=== PATIENT | female | born 1935 | race Caucasian/White ===

== ENCOUNTER 2022-05-05 16:01 | Inpatient (IN) ==
[2022-05-05] MEDS ORDERED: 0.9 % Sodium Chloride 1,000 ML IVC ONE (16:40)
[2022-05-05] MEDS ORDERED: Iopamidol - 370 500 ML MLS IVP ONE (16:42)
[2022-05-05] MEDS ORDERED: Piperacillin/Tazobactam 3.375 GM in 0.9 % Sodium Chloride Mini Bag 100 ML IVPB ONE (16:43)
[2022-05-05 17:05] LABS: INR 1.2; Prothrombin Time 13.5 Seconds (9.4-12.1)
[2022-05-05 17:08] LABS: Activated Partial Thrombo Time 30.1 Seconds (26.0-36.0)
[2022-05-05 17:16] LABS: Basophils % 0.3 %; Eosinophils # 0.1 K/mcL (0.0-0.6); Eosinophils % 0.7 %; Hemoglobin 11.4 g/dL (11.5-15.4); Immature Granulocytes % 0.5 % (0-4); Lymphocytes # 1.4 K/mcL (0.6-4.6); Lymphocytes % 15.6 %; Mean Corpuscular HGB Conc 32.6 g/dL (31.6-35.5); Mean Corpuscular Hemoglobin 29.8 pg (28.0-33.3); Mean Corpuscular Volume 91.4 fL (83.0-100.0); Mean Platelet Volume 9.1 fL (9.4-12.4); Monocytes # 0.7 K/mcL (0.0-1.3); Monocytes % 8.3 %; Neutrophils # 6.5 K/mcL (1.6-8.9); Platelet Count 387 K/mcL (140-400); Red Blood Count 3.83 M/mcL (3.82-4.97); Red Cell Distribution Width 12.5 % (11.5-14.5); Segmented Neutrophils % 74.6 %; White Blood Count 8.8 K/mcL (4.3-11.1)
[2022-05-05 17:16] LABS: Albumin/Globulin Ratio 0.8 (1.1-2.2); Bilirubin,Indirect 0.3 mg/dL (0.0-1.0); Bilirubin,Total 0.3 mg/dL (0.3-1.0); Globulin 3.7 g/dL (2.4-3.5); Potassium 4.9 mEq/L (3.5-5.1); Total Protein 6.7 g/dL (6.4-8.9); Troponin I 0.04 ng/mL (< 0.04)
[2022-05-05 19:09] LABS: Bilirubin,Urine Negative (Negative); Blood,Urine Moderate (Negative); Budding Yeast,Urine Few per hpf (None Seen); Clarity,Urine Clear (Clear); Color,Urine Light-Yellow (Yellow); Glucose,Urine (UA) Normal (Normal); Hyaline Casts,Urine Few per lpf (None Seen); Ketones,Urine Negative (Negative); Leukocyte Esterase,Urine Moderate (Negative); Mucus,Urine Few per lpf (None-Few); Nitrite,Urine Negative (Negative); Protein,Urine Negative (Neg-Trace); RBC,Urine 50-100 per hpf (0-3); Specific Gravity,Urine 1.026 (1.010-1.025); Squamous Epithelial Cell,Urine Few per hpf (None-Few); Urobilinogen,Urine Normal (Normal); WBC,Urine 30-50 per hpf (0-3)
[2022-05-05] MEDS ORDERED: Melatonin 3 MG TABLET PO PRN (20:54)
[2022-05-05] MEDS ORDERED: Acetaminophen 325 MG TABLET PO PRN (20:54)
[2022-05-05] MEDS ORDERED: Naloxone 0.4 MG/ML INJ IVP PRN (20:54)
[2022-05-05] MEDS ORDERED: Ondansetron 4 MG/2 ML VIAL IVP PRN (20:54)
[2022-05-05] MEDS ORDERED: Gadolinium Contrast Agent (WT Based) IV PRN (22:53)
[2022-05-05] MEDS: Apixaban 5 MG TABLET PO SCH (23:32)
[2022-05-05] MEDS: Piperacillin/Tazobactam 3.375 GM in 0.9 % Sodium Chloride Mini Bag 100 ML IVPB SCH (23:33)
[2022-05-06 02:05] LABS: Basophils % 0.3 %; Eosinophils # 0.1 K/mcL (0.0-0.6); Eosinophils % 0.9 %; Hematocrit 31.7 % (35.3-44.9); Hemoglobin 10.4 g/dL (11.5-15.4); Immature Granulocytes % 0.3 % (0-4); Lymphocytes # 1.5 K/mcL (0.6-4.6); Lymphocytes % 16.7 %; Mean Corpuscular HGB Conc 32.8 g/dL (31.6-35.5); Mean Corpuscular Hemoglobin 30.1 pg (28.0-33.3); Mean Corpuscular Volume 91.9 fL (83.0-100.0); Mean Platelet Volume 9.3 fL (9.4-12.4); Monocytes # 0.8 K/mcL (0.0-1.3); Monocytes % 9.5 %; Neutrophils # 6.3 K/mcL (1.6-8.9); Platelet Count 356 K/mcL (140-400); Red Blood Count 3.45 M/mcL (3.82-4.97); Red Cell Distribution Width 12.8 % (11.5-14.5); Segmented Neutrophils % 72.3 %; White Blood Count 8.7 K/mcL (4.3-11.1)
[2022-05-06 02:14] LABS: INR 1.2; Prothrombin Time 13.2 Seconds (9.4-12.1)
[2022-05-06 02:16] LABS: Activated Partial Thrombo Time 28.2 Seconds (26.0-36.0)
[2022-05-06 02:25] LABS: Magnesium 1.9 mg/dL (1.6-2.6); Phosphorous 2.6 mg/dL (2.7-4.5); Potassium 3.6 mEq/L (3.5-5.1)
[2022-05-06 02:56] LABS: Troponin I 0.06 ng/mL (< 0.04)
[2022-05-06] MEDS: Apixaban 5 MG TABLET PO SCH (08:07)
[2022-05-06] MEDS: Piperacillin/Tazobactam 3.375 GM in 0.9 % Sodium Chloride Mini Bag 100 ML IVPB SCH ×2 (08:07→15:49)
[2022-05-06] MEDS ORDERED: Aspirin 81 MG TAB.CHEW PO SCH (09:00)
[2022-05-06] MEDS ORDERED: Gadolinium Contrast Agent (WT Based) IV PRN ×2 (12:13→16:01)
[2022-05-06] MEDS: Ringers Solution, Lactated 1,000 ML IVC SCH (12:27)
[2022-05-07] MEDS: Piperacillin/Tazobactam 3.375 GM in 0.9 % Sodium Chloride Mini Bag 100 ML IVPB SCH ×3 (00:58→16:22)
[2022-05-07 03:12] LABS: Hematocrit 32.5 % (35.3-44.9); Hemoglobin 10.3 g/dL (11.5-15.4); Mean Corpuscular HGB Conc 31.7 g/dL (31.6-35.5); Mean Corpuscular Hemoglobin 29.2 pg (28.0-33.3); Mean Corpuscular Volume 92.1 fL (83.0-100.0); Mean Platelet Volume 9.3 fL (9.4-12.4); Platelet Count 330 K/mcL (140-400); Red Blood Count 3.53 M/mcL (3.82-4.97); White Blood Count 7.6 K/mcL (4.3-11.1)
[2022-05-07 03:31] LABS: Calcium 10.1 mg/dL (8.6-10.3)
[2022-05-07] MEDS ORDERED: *HR* Labetalol 20 MG/4 ML SYRINGE IVP ONE (07:00)
[2022-05-07] MEDS: carvediloL 6.25 MG TABLET PO SCH ×2 (09:01→21:53)
[2022-05-07] MEDS: Ringers Solution, Lactated 1,000 ML IVC SCH (13:21)
[2022-05-07] MEDS ORDERED: Morphine Sulfate Oral CONC 10 MG/0.5 ML ORAL.SYG SL PRN (16:59)
[2022-05-07] MEDS: Vancomycin 1,250 MG/262.5 ML IV.SOLN IVPB SCH (20:16)
[2022-05-07] MEDS: traZODone 50 MG TABLET PO SCH (21:54)
[2022-05-08] MEDS: Piperacillin/Tazobactam 3.375 GM in 0.9 % Sodium Chloride Mini Bag 100 ML IVPB SCH ×3 (00:15→16:10)
[2022-05-08 01:50] LABS: Hematocrit 32.3 % (35.3-44.9); Hemoglobin 10.3 g/dL (11.5-15.4); Mean Corpuscular HGB Conc 31.9 g/dL (31.6-35.5); Mean Corpuscular Hemoglobin 29.3 pg (28.0-33.3); Mean Platelet Volume 9.4 fL (9.4-12.4); Platelet Count 356 K/mcL (140-400); Red Blood Count 3.51 M/mcL (3.82-4.97); Red Cell Distribution Width 12.9 % (11.5-14.5); White Blood Count 8.1 K/mcL (4.3-11.1)
[2022-05-08 02:07] LABS: Calcium 10.3 mg/dL (8.6-10.3); Potassium 3.8 mEq/L (3.5-5.1)
[2022-05-08] MEDS: Ringers Solution, Lactated 1,000 ML IVC SCH (02:42)
[2022-05-08] MEDS: carvediloL 6.25 MG TABLET PO SCH ×2 (08:06→20:51)
[2022-05-08] MEDS: Vancomycin 1,250 MG/262.5 ML IV.SOLN IVPB SCH (20:51)
[2022-05-08] MEDS: traZODone 50 MG TABLET PO SCH (20:51)
[2022-05-09] MEDS: Piperacillin/Tazobactam 3.375 GM in 0.9 % Sodium Chloride Mini Bag 100 ML IVPB SCH ×4 (01:05→23:50)
[2022-05-09] MEDS: Ringers Solution, Lactated 1,000 ML IVC SCH ×2 (06:30→21:43)
[2022-05-09] MEDS: carvediloL 6.25 MG TABLET PO SCH ×2 (08:23→21:44)
[2022-05-09] MEDS ORDERED: *HR* Labetalol 20 MG/4 ML SYRINGE IVP ONE (17:42)
[2022-05-09] MEDS: Vancomycin 1,250 MG/262.5 ML IV.SOLN IVPB SCH (21:43)
[2022-05-09] MEDS: traZODone 50 MG TABLET PO SCH (21:44)
[2022-05-10 03:44] LABS: Hematocrit 29.4 % (35.3-44.9); Hemoglobin 9.8 g/dL (11.5-15.4); Mean Corpuscular HGB Conc 33.3 g/dL (31.6-35.5); Mean Corpuscular Hemoglobin 29.9 pg (28.0-33.3); Mean Corpuscular Volume 89.6 fL (83.0-100.0); Mean Platelet Volume 9.7 fL (9.4-12.4); Platelet Count 294 K/mcL (140-400); Red Blood Count 3.28 M/mcL (3.82-4.97); Red Cell Distribution Width 12.6 % (11.5-14.5); White Blood Count 7.8 K/mcL (4.3-11.1)
[2022-05-10 03:51] LABS: Calcium 9.6 mg/dL (8.6-10.3); Potassium 3.5 mEq/L (3.5-5.1)
[2022-05-10] MEDS: Piperacillin/Tazobactam 3.375 GM in 0.9 % Sodium Chloride Mini Bag 100 ML IVPB SCH ×3 (08:25→23:22)
[2022-05-10] MEDS: Lactobacillus 1 EACH CAP.SPRINK PO SCH ×2 (08:27→20:26)
[2022-05-10] MEDS: carvediloL 6.25 MG TABLET PO SCH ×2 (08:28→20:26)
[2022-05-10] MEDS: Ringers Solution, Lactated 1,000 ML IVC SCH (10:30)
[2022-05-10] MEDS: Vancomycin 1,250 MG/262.5 ML IV.SOLN IVPB SCH (18:09)
[2022-05-10] MEDS: traZODone 50 MG TABLET PO SCH (20:26)
[2022-05-11 05:01] LABS: Hematocrit 27.9 % (35.3-44.9); Hemoglobin 9.1 g/dL (11.5-15.4); Mean Corpuscular HGB Conc 32.6 g/dL (31.6-35.5); Mean Corpuscular Hemoglobin 29.7 pg (28.0-33.3); Mean Corpuscular Volume 91.2 fL (83.0-100.0); Mean Platelet Volume 9.7 fL (9.4-12.4); Platelet Count 307 K/mcL (140-400); Red Blood Count 3.06 M/mcL (3.82-4.97); Red Cell Distribution Width 12.9 % (11.5-14.5); White Blood Count 7.5 K/mcL (4.3-11.1)
[2022-05-11 05:19] LABS: Calcium 9.5 mg/dL (8.6-10.3); Potassium 3.8 mEq/L (3.5-5.1)
[2022-05-11] MEDS: Piperacillin/Tazobactam 3.375 GM in 0.9 % Sodium Chloride Mini Bag 100 ML IVPB SCH ×2 (08:32→15:46)
[2022-05-11] MEDS: carvediloL 6.25 MG TABLET PO SCH ×2 (08:36→20:06)
[2022-05-11] MEDS: Lactobacillus 1 EACH CAP.SPRINK PO SCH ×2 (08:36→20:07)
[2022-05-11] MEDS: traZODone 50 MG TABLET PO SCH (20:06)
[2022-05-12] MEDS: Piperacillin/Tazobactam 3.375 GM in 0.9 % Sodium Chloride Mini Bag 100 ML IVPB SCH ×4 (00:05→23:47)
[2022-05-12] MEDS: Lactobacillus 1 EACH CAP.SPRINK PO SCH ×2 (08:53→21:41)
[2022-05-12] MEDS: carvediloL 6.25 MG TABLET PO SCH ×2 (08:54→21:41)
[2022-05-12] MEDS: traZODone 50 MG TABLET PO SCH (21:41)
[2022-05-13 04:42] LABS: Basophils # 0.1 K/mcL (0.0-0.2); Basophils % 0.7 %; Eosinophils # 0.1 K/mcL (0.0-0.6); Hematocrit 28.9 % (35.3-44.9); Hemoglobin 9.4 g/dL (11.5-15.4); Immature Granulocytes % 0.3 % (0-4); Lymphocytes # 1.1 K/mcL (0.6-4.6); Lymphocytes % 12.5 %; Mean Corpuscular HGB Conc 32.5 g/dL (31.6-35.5); Mean Corpuscular Hemoglobin 29.4 pg (28.0-33.3); Mean Corpuscular Volume 90.3 fL (83.0-100.0); Mean Platelet Volume 9.5 fL (9.4-12.4); Monocytes # 0.5 K/mcL (0.0-1.3); Monocytes % 6.1 %; Platelet Count 340 K/mcL (140-400); Red Cell Distribution Width 13.1 % (11.5-14.5); Segmented Neutrophils % 79.4 %; White Blood Count 8.8 K/mcL (4.3-11.1)
[2022-05-13 04:59] LABS: Calcium 9.7 mg/dL (8.6-10.3); Potassium 3.3 mEq/L (3.5-5.1)
[2022-05-13] MEDS: carvediloL 6.25 MG TABLET PO SCH ×2 (07:25→21:05)
[2022-05-13] MEDS: Piperacillin/Tazobactam 3.375 GM in 0.9 % Sodium Chloride Mini Bag 100 ML IVPB SCH (07:25)
[2022-05-13] MEDS: Lactobacillus 1 EACH CAP.SPRINK PO SCH ×2 (07:25→21:04)
[2022-05-13] MEDS ORDERED: *HR* Labetalol 20 MG/4 ML SYRINGE IVP ONE (07:52)
[2022-05-13] MEDS: Apixaban 5 MG TABLET PO SCH (21:04)
[2022-05-13] MEDS: traZODone 50 MG TABLET PO SCH (21:05)
[2022-05-14 05:50] LABS: Basophils # 0.1 K/mcL (0.0-0.2); Basophils % 0.7 %; Eosinophils # 0.2 K/mcL (0.0-0.6); Hematocrit 28.1 % (35.3-44.9); Hemoglobin 9.2 g/dL (11.5-15.4); Immature Granulocytes % 0.3 % (0-4); Lymphocytes # 1.7 K/mcL (0.6-4.6); Lymphocytes % 23.3 %; Mean Corpuscular HGB Conc 32.7 g/dL (31.6-35.5); Mean Corpuscular Hemoglobin 29.5 pg (28.0-33.3); Mean Corpuscular Volume 90.1 fL (83.0-100.0); Mean Platelet Volume 9.5 fL (9.4-12.4); Monocytes # 0.6 K/mcL (0.0-1.3); Neutrophils # 4.5 K/mcL (1.6-8.9); Platelet Count 331 K/mcL (140-400); Red Blood Count 3.12 M/mcL (3.82-4.97); Red Cell Distribution Width 13.2 % (11.5-14.5); Segmented Neutrophils % 63.7 %; White Blood Count 7.1 K/mcL (4.3-11.1)
[2022-05-14 06:08] LABS: Calcium 9.7 mg/dL (8.6-10.3); Potassium 3.8 mEq/L (3.5-5.1)
[2022-05-14] MEDS: Apixaban 5 MG TABLET PO SCH ×2 (08:35→20:04)
[2022-05-14] MEDS: Lactobacillus 1 EACH CAP.SPRINK PO SCH ×2 (08:35→20:04)
[2022-05-14] MEDS: carvediloL 6.25 MG TABLET PO SCH ×2 (08:35→20:05)
[2022-05-14] MEDS: niCARdipine 20 MG/200 ML MLS IVC SCH (16:12)
[2022-05-14] MEDS: traZODone 50 MG TABLET PO SCH (20:04)
[2022-05-15] MEDS: niCARdipine 20 MG/200 ML MLS IVC SCH (06:02)
[2022-05-15] MEDS: Apixaban 5 MG TABLET PO SCH ×2 (09:57→21:57)
[2022-05-15] MEDS: amLODIPine 5 MG TABLET PO SCH (09:57)
[2022-05-15] MEDS: carvediloL 6.25 MG TABLET PO SCH ×2 (09:57→21:57)
[2022-05-15] MEDS: Lactobacillus 1 EACH CAP.SPRINK PO SCH ×2 (10:03→21:57)
[2022-05-15] MEDS ORDERED: hydrOXYzine pamoate 25 MG CAPSULE PO STA (10:40)
[2022-05-15 21:54] VITALS: O2SAT 99
[2022-05-15] MEDS: traZODone 50 MG TABLET PO SCH (21:57)
[2022-05-16 01:21] VITALS: BP 158/70; PULSE 77; TEMP 97.8
[2022-05-16] MEDS: Apixaban 5 MG TABLET PO SCH (09:32)
[2022-05-16] MEDS: amLODIPine 5 MG TABLET PO SCH (09:33)
[2022-05-16] MEDS: carvediloL 6.25 MG TABLET PO SCH (09:33)
[2022-05-16] MEDS: Lactobacillus 1 EACH CAP.SPRINK PO SCH (09:33)
[2022-05-16] MEDS ORDERED: hydrOXYzine pamoate 25 MG CAPSULE PO ONE (10:32)
== END 2022-05-16 13:29 | DRG 539 ==
LOC: 2NENU 16:01 → EMEROOARM 16:01 → SUATTDRO 19:57 → 2NENU 21:03 → SUATTDRO 05-06 11:53 → UNDODISIN 05-14 14:26
PROVIDERS: ADMIT Internal Medicine; ATTEND Student in an Organized Health Care Education/Training Program